=== PATIENT | female | born 1970 | race Caucasian/White ===

== ENCOUNTER → 2018-09-16 | Outpatient (CLI) | payer BC ==
[2018-09-16 09:36] LABS: Basophils # (A) 0.1 k/uL (0-0.2); Basophils % (A) 1 %; Eosinophils # (A) 0.2 k/uL (0-0.7); Eosinophils % (A) 3 %; HCT 44.1 % (34.0-46.0); Lymphocytes # (A) 1.8 k/uL (1.0-4.8); Lymphocytes % (A) 23 %; MCH 29.4 pg (25.0-35.0); MCHC 31.8 g/dL (31.0-37.0); MCV 92.7 fL (80.0-100.0); Mean Platelet Volume 7.5; Monocytes # (A) 0.3 k/uL (0-1.0); Monocytes % (A) 3 %; Neutrophils # (A) 5.3 k/uL (1.3-7.7); Neutrophils % (A) 69 %; Platelet Count 316 k/uL (150-450); RBC 4.76 m/uL (3.80-5.40); RDW 13.1 % (11.5-15.5); WBC 7.7 k/uL (3.8-10.6)
[2018-09-16 17:11] LABS: Albumin 4.2 g/dL (3.80-4.90); Albumin/Globulin Ratio 1.68 (1.60-3.17); Anion Gap 9.5 mmol/L (4.00-12.00); Calcium 9.2 mg/dL (8.7-10.3); Carbon Dioxide 23.5 mmol/L (21.6-31.8); Globulin 2.5 g/dL (1.6-3.3); LDL Cholesterol,Calculated 112.6 mg/dL (0.0-131.0); Potassium 4.8 mmol/L (3.5-5.5); Total Bilirubin 0.4 mg/dL (0.2-1.2); Total Protein 6.7 g/dL (6.2-8.2); VLDL Calculation 48.4 mg/dL (5.00-40.00)
[2018-09-16 17:20] LABS: Vitamin D 25 Hydroxy 48.7 ng/mL (30.0-100.0)
[2018-09-16 21:22] LABS: Hemoglobin A1C 5.3 % (4.0-6.0)
== END | disposition home or self-care (01) ==
LOC: LABWHC1 08:31
PROVIDERS: ATTEND Family Medicine
DX: J45.20 Mild intermittent asthma, uncomplicated (principal); E55.9 Vitamin D deficiency, unspecified; E53.8 Deficiency of other specified B group vitamins; Z13.228 Encounter for screening for other metabolic disorders; Z13.220 Encounter for screening for lipoid disorders
CPT/HCPCS: 36415; 80053; 80061; 82306; 82607; 83036; 84443; 85025

== ENCOUNTER → 2019-05-15 | Outpatient (CLI) | payer BC ==
[2019-05-15 09:09] LABS: Basophils # (A) 0.1 k/uL (0-0.2); Basophils % (A) 1 %; Eosinophils # (A) 0.2 k/uL (0-0.7); Eosinophils % (A) 3 %; HCT 41.3 % (34.0-46.0); HGB 14.1 gm/dL (11.4-16.0); Lymphocytes # (A) 2.5 k/uL (1.0-4.8); Lymphocytes % (A) 37 %; MCH 31.5 pg (25.0-35.0); MCV 92.7 fL (80.0-100.0); Mean Platelet Volume 6.7; Monocytes # (A) 0.3 k/uL (0-1.0); Monocytes % (A) 4 %; Neutrophils # (A) 3.8 k/uL (1.3-7.7); Neutrophils % (A) 54 %; Platelet Count 365 k/uL (150-450); RBC 4.46 m/uL (3.80-5.40); RDW 12.7 % (11.5-15.5); WBC 6.9 k/uL (3.8-10.6)
[2019-05-15 18:15] LABS: Albumin 4.2 g/dL (3.80-4.90); Albumin/Globulin Ratio 1.83 (1.60-3.17); BUN/Creat Ratio 16.25 Ratio (12.00-20.00); Calcium 9.4 mg/dL (8.7-10.3); Chol/HDL Ratio 3.88; Globulin 2.3 g/dL (1.6-3.3); Potassium 4.5 mmol/L (3.5-5.5); Total Bilirubin 0.5 mg/dL (0.2-1.2); Total Protein 6.5 g/dL (6.2-8.2)
[2019-05-19 11:09] LABS: Alpha 1 Anti-Trypsin 110 mg/dL (90 - 200)
== END | disposition home or self-care (01) ==
LOC: LABWHC1 07:47
PROVIDERS: ATTEND Family Medicine
DX: J45.40 Moderate persistent asthma, uncomplicated (principal); E78.1 Pure hyperglyceridemia
CPT/HCPCS: 36415; 80053; 80061; 82103; 82104; 82785; 84443; 85025; 86001; 86003; 86606; 86609

== ENCOUNTER → 2019-08-17 | Outpatient (CLI) | payer BC ==
--- NOTE | 2019-08-18 09:14 | MM ---
Reason for exam: screening (asymptomatic). Last mammogram was performed 5 years ago. History: Benign excisional biopsy of the right breast, 2004. Took estrogen for 19 years. Physical Findings: A clinical breast exam by your physician is recommended on an annual basis and results should be correlated with mammographic findings. MG 3D Screening Mammo W/Cad Bilateral CC and MLO view(s) were taken. Prior study comparison: August 03, 2014, bilateral MG screening mammo w CAD. March 19, 2012, bilateral digital screening mammo w/CAD. The breast tissue is heterogeneously dense. This may lower the sensitivity of mammography. No suspicious abnormality. No significant changes when compared with prior studies. ASSESSMENT: Negative, BI-RAD 1 RECOMMENDATION: Routine screening mammogram of both breasts in 1 year.
== END | disposition home or self-care (01) ==
LOC: RADMAMWWP 11:07
PROVIDERS: ATTEND Obstetrics & Gynecology
DX: Z12.31 Encounter for screening mammogram for malignant neoplasm of breast (principal)
CPT/HCPCS: 77063; 77067

== ENCOUNTER 2020-06-27 20:07 | Inpatient (IN) | payer BC ==
[2020-06-27] MEDS ORDERED: ACETAMINOPHEN TAB 500 MG TAB PO STA (21:06)
--- NOTE | 2020-06-27 21:09 | ED ---
SOB HPI - General Chief Complaint: Shortness of Breath Stated Complaint: + COVID Time Seen by Provider: 06/27/20 20:42 Source: patient Mode of arrival: ambulatory Limitations: no limitations - History of Present Illness Initial Comments: 49-year-old female with history of asthma presenting to the emergency department with a chief complaint of shortness of breath. Patient states 10 days ago she was diagnosed with covid-19 and she has been doing well. However, since yesterday she developed increased shortness of breath and chest pressure. She does report dyspnea on exertion. She denies any wheezing. States she contacted her primary care physician who started her on aspirin and prednisone with small improvement in symptoms. She does report complete loss of taste and smell. She reports alternate between Tylenol and Motrin for antipyretic control. She does report generalized body aches. Denies any nausea vomiting diarrhea. She denies history of PE or DVT, exogenous hormone use, unilateral leg swelling, hemoptysis, recent hospitalizations. - Related Data Allergies Allergy/AdvReac Type Severity Reaction Status Date / Time amoxicillin Allergy Unknown Verified 06/27/20 20:15 Childhood Sulfa (Sulfonamide Allergy Unknown Verified 06/27/20 20:15 Antibiotics) Childhood Review of Systems ROS Statement: Those systems with pertinent positive or pertinent negative responses have been documented in the HPI. ROS Other: All systems not noted in ROS Statement are negative. Past Medical History History of Any Multi-Drug Resistant Organisms: None Reported Smoking Status: Never smoker Past Alcohol Use History: None Reported Past Drug Use History: None Reported General Exam Limitations: no limitations General appearance: alert, in no apparent distress Head exam: Present: atraumatic, normocephalic, normal inspection Eye exam: Present: normal appearance, PERRL, EOMI Pupils: Present: normal accommodation ENT exam: Present: normal exam, normal oropharynx, mucous membranes moist, TM's normal bilaterally, normal external ear exam Neck exam: Present: normal inspection, full ROM. Absent: tenderness Respiratory exam: Present: rales (Crackles left lung base). Absent: normal lung sounds bilaterally, respiratory distress, wheezes, rhonchi, stridor, chest wall tenderness, accessory muscle use Cardiovascular Exam: Present: regular rate, normal rhythm, normal heart sounds. Absent: systolic murmur, diastolic murmur GI/Abdominal exam: Present: soft. Absent: distended, tenderness, guarding Extremities exam: Present: normal inspection, full ROM, normal capillary refill. Absent: tenderness, pedal edema, joint swelling, calf tenderness Back exam: Present: normal inspection, full ROM. Absent: tenderness, CVA tenderness (R), CVA tenderness (L) Neurological exam: Present: alert, oriented X3, normal gait Psychiatric exam: Present: normal affect, normal mood. Absent: agitated Skin exam: Present: warm, dry, intact, normal color Course Vital Signs 06/27/20 06/27/20 20:12 21:34 Temperature 100.2 F H Pulse Rate 123 H Respiratory 18 18 Rate Blood Pressure 144/81 O2 Sat by Pulse 96 Oximetry Medical Decision Making - Medical Decision Making 49-year-old female with history of asthma presenting to the emergency department with a chief complaint of shortness of breath. On physical examination, patient continues to be short of breath and she is having a nonproductive cough. Auscultation, she has crackles on the left lung base. Portable chest x-ray is unremarkable. CBC reveals leukocytosis of 16.2. Left shift. Coags within normal limits. Initial the emergency. Elevated CRP at 156. Patient is sitting at 95 on room air and it goes slightly below when ambulate him. She continues to feel short of breath. Her EKG showing sinus rhythm. She was tachycardic initially and she has been complaining of that over the past few days. Patient will be admitted for further medical management. Case discussed with ADmitting is Dr Brooks - Lab Data Result diagrams: 06/27/20 21:25 06/27/20 21:25 Lab Results 06/27/20 06/27/20 06/27/20 Range/Units 21:25 21:25 21:25 WBC 16.2 H (3.8-10.6) k/uL RBC 4.28 (3.80-5.40) m/uL Hgb 12.9 (11.4-16.0) gm/dL Hct 39.4 (34.0-46.0) % MCV 92.0 (80.0-100.0) fL MCH 30.2 (25.0-35.0) pg MCHC 32.8 (31.0-37.0) g/dL RDW 12.8 (11.5-15.5) % Plt Count 393 (150-450) k/uL MPV 7.5 Neutrophils % 91 % Lymphocytes % 5 % Monocytes % 2 % Eosinophils % 1 % Basophils % 1 % Neutrophils # 14.7 H (1.3-7.7) k/uL Lymphocytes # 0.9 L (1.0-4.8) k/uL Monocytes # 0.3 (0-1.0) k/uL Eosinophils # 0.1 (0-0.7) k/uL Basophils # 0.1 (0-0.2) k/uL PT 9.4 (9.0-12.0) sec INR 0.9 (<1.2) APTT 20.8 L (22.0-30.0) sec D-Dimer 0.49 (<0.60) mg/L FEU Sodium 136 L (137-145) mmol/L Potassium 3.8 (3.5-5.1) mmol/L Chloride 105 (98-107) mmol/L Carbon Dioxide 25 (22-30) mmol/L Anion Gap 6 mmol/L BUN 12 (7-17) mg/dL Creatinine 0.76 (0.52-1.04) mg/dL Est GFR (CKD-EPI)AfAm >90 (>60 ml/min/1.73 sqM) Est GFR (CKD-EPI)NonAf >90 (>60 ml/min/1.73 sqM) Glucose 112 H (74-99) mg/dL Plasma Lactic Acid Dylan (0.7-2.0) mmol/L Calcium 9.6 (8.4-10.2) mg/dL Magnesium 2.3 (1.6-2.3) mg/dL Total Bilirubin 0.4 (0.2-1.3) mg/dL AST 25 (14-36) U/L ALT 32 (4-34) U/L Alkaline Phosphatase 57 (38-126) U/L Lactate Dehydrogenase 442 (313-618) U/L C-Reactive Protein 156.8 H (<10.0) mg/L Total Protein 6.9 (6.3-8.2) g/dL Albumin 3.6 (3.5-5.0) g/dL /16/20 Range/Units 21:25 WBC (3.8-10.6) k/uL RBC (3.80-5.40) m/uL Hgb (11.4-16.0) gm/dL Hct (34.0-46.0) % MCV (80.0-100.0) fL MCH (25.0-35.0) pg MCHC (31.0-37.0) g/dL RDW (11.5-15.5) % Plt Count (150-450) k/uL MPV Neutrophils % % Lymphocytes % % Monocytes % % Eosinophils % % Basophils % % Neutrophils # (1.3-7.7) k/uL Lymphocytes # (1.0-4.8) k/uL Monocytes # (0-1.0) k/uL Eosinophils # (0-0.7) k/uL Basophils # (0-0.2) k/uL PT (9.0-12.0) sec INR (<1.2) APTT (22.0-30.0) sec D-Dimer (<0.60) mg/L FEU Sodium (137-145) mmol/L Potassium (3.5-5.1) mmol/L Chloride (98-107) mmol/L Carbon Dioxide (22-30) mmol/L Anion Gap mmol/L BUN (7-17) mg/dL Creatinine (0.52-1.04) mg/dL Est GFR (CKD-EPI)AfAm (>60 ml/min/1.73 sqM) Est GFR (CKD-EPI)NonAf (>60 ml/min/1.73 sqM) Glucose (74-99) mg/dL Plasma Lactic Acid Dylan 1.5 (0.7-2.0) mmol/L Calcium (8.4-10.2) mg/dL Magnesium (1.6-2.3) mg/dL Total Bilirubin (0.2-1.3) mg/dL AST (14-36) U/L ALT (4-34) U/L Alkaline Phosphatase (38-126) U/L Lactate Dehydrogenase (313-618) U/L C-Reactive Protein (<10.0) mg/L Total Protein (6.3-8.2) g/dL Albumin (3.5-5.0) g/dL - EKG Data EKG Comments: Sinus rhythm with no ST or T-wave changes. Ventricular rate 91, AL 138, QRS 72, QTC 432. Disposition Clinical Impression: COVID-19, Shortness of breath Disposition: ADMITTED IP TO THIS HOSP Condition: Good Is patient prescribed a controlled substance at d/c from ED?: No Referrals: Belen Brooks MD [Primary Care Provider] - 1-2 days Time of Disposition: 23:29
--- NOTE | 2020-06-27 21:16 | XR ---
EXAMINATION TYPE: XR chest 1V portable DATE OF EXAM: 06/27/2020 COMPARISON: 05/18/2015. HISTORY: Shortness of breath and body aches. TECHNIQUE: Single frontal view of the chest is obtained. FINDINGS: There is no focal air space opacity, pleural effusion, or pneumothorax seen. The cardiac silhouette size is within normal limits. The osseous structures are intact. IMPRESSION: No acute process.
[2020-06-27 21:56] LABS: Basophils # (A) 0.1 k/uL (0-0.2); Basophils % (A) 1 %; Eosinophils # (A) 0.1 k/uL (0-0.7); Eosinophils % (A) 1 %; HCT 39.4 % (34.0-46.0); HGB 12.9 gm/dL (11.4-16.0); Lymphocytes # (A) 0.9 k/uL (1.0-4.8); Lymphocytes % (A) 5 %; MCH 30.2 pg (25.0-35.0); MCHC 32.8 g/dL (31.0-37.0); Mean Platelet Volume 7.5; Monocytes # (A) 0.3 k/uL (0-1.0); Monocytes % (A) 2 %; Neutrophils # (A) 14.7 k/uL (1.3-7.7); Neutrophils % (A) 91 %; Platelet Count 393 k/uL (150-450); RBC 4.28 m/uL (3.80-5.40); RDW 12.8 % (11.5-15.5); WBC 16.2 k/uL (3.8-10.6)
[2020-06-27 22:18] LABS: D-Dimer 0.49 mg/L FEU (<0.60); INR 0.9 (<1.2); Prothrombin Time 9.4 sec (9.0-12.0)
[2020-06-27 22:27] LABS: ALT 32 U/L (4-34); AST 25 U/L (14-36); African American GFR (CKD) >90 (>60 ml/min/1.73 sqM); Albumin 3.6 g/dL (3.5-5.0); Alkaline Phosphatase 57 U/L (38-126); Anion Gap 6 mmol/L; Blood Urea Nitrogen 12 mg/dL (7-17); Calcium 9.6 mg/dL (8.4-10.2); Carbon Dioxide 25 mmol/L (22-30); Chloride 105 mmol/L (98-107); Glucose 112 mg/dL (74-99); LDH 442 U/L (313-618); Magnesium 2.3 mg/dL (1.6-2.3); Non-African American GFR(CKD) >90 (>60 ml/min/1.73 sqM); Partial Thromboplastin Time 20.8 sec (22.0-30.0); Potassium 3.8 mmol/L (3.5-5.1); Sodium 136 mmol/L (137-145); Total Bilirubin 0.4 mg/dL (0.2-1.3); Total Protein 6.9 g/dL (6.3-8.2)
[2020-06-27 22:38] LABS: C Reactive Protein 156.8 mg/L (<10.0)
[2020-06-27] MEDS ORDERED: ACETAMINOPHEN TAB 325 MG TAB PO PRN (23:03)
[2020-06-27] MEDS ORDERED: NALOXONE 0.4 MG/ML 1 ML VIAL IV PRN (23:03)
[2020-06-27] MEDS ORDERED: ONDANSETRON 4 MG/2 ML VIAL IVP PRN (23:03)
[2020-06-27] MEDS ORDERED: MORPHINE SULFATE 4 MG/ML SYRINGE IV PRN (23:03)
[2020-06-27] MEDS ORDERED: LORazepam 2 MG/ML INJ IV PRN (23:03)
[2020-06-28] MEDS: SODIUM CHLORIDE 0.9% 1,000 ML IV SCH ×2 (03:00→14:18)
[2020-06-28 03:45] LABS: Ferritin 445.8 ng/mL (10.0-291.0)
[2020-06-28] MEDS ORDERED: diazePAM 5 MG TAB PO PRN (09:09)
[2020-06-28] MEDS ORDERED: AZITHROMYCIN 500 MG TAB PO SCH (09:15)
[2020-06-28] MEDS: ENOXAPARIN 40 MG/0.4 ML SYRINGE SQ SCH (09:58)
[2020-06-28] MEDS: CHOLECALCIFEROL 1,000 UNIT TAB PO SCH (09:58)
[2020-06-28] MEDS: ASCORBIC ACID 500 MG TAB PO SCH (09:58)
[2020-06-28] MEDS: ZINC SULFATE 220 MG CAP PO SCH (09:59)
[2020-06-28] MEDS: guaiFENesin-Coden 100-10MG/5ML 10 ML CUP PO PRN (10:00)
--- NOTE | 2020-06-28 10:26 | P.HPIM ---
History of Present Illness H&P Date: 06/28/20 HISTORY OF PRESENT ILLNESS This is a 49-year-old female patient of Dr. Brooks and Dr. Calderon with past medical history of moderate intermittent asthma, lifelong nonsmoker. Patient states that she was diagnosed with COVID-19 10 days ago and her PCP gave her prescription for antibiotics and Decadron. She was feeling better with the steroids but over the last couple days she developed increasing fevers, headache and shortness of breath, exertional dyspnea. She came into [facility] emergency center for evaluation and found to have a t emperature 100.2, initial heart rate 123, blood pressure 144/81, pulse ox 96% on room air. WBCs were 16.2, d-dimer 0.49, sodium 136, potassium 3.8, creatinine 0.76. Ferritin 445.8. Liver function tests were normal. LDH 442, direct protein 156.8. EKG with sinus rhythm with no acute ST changes. Chest x-ray reveals no acute process. Patient is requesting to go home but her symptoms are not improved since she came in. She is requesting to not be on steroids because she has not been able to sleep. REVIEW OF SYSTEMS Constitutional: Reports fever, Reports chills, Reports night sweats. No weight change. No weakness, fatigue or lethargy. No daytime sleepiness. EENT: No headache. No blurred vision or double vision, no loss of vision. No loss of Hearing, no ringing in the ears, no dizziness. No nasal drainage or congestion. No epistaxis. No sore throat. Lungs: Reports shortness of breath, reports dyspnea with exertion, Reports cough, no sputum production. No wheezing. No hemoptysis. Cardiovascular: No chest pain, no lower extremity edema. No palpitations. No paroxysmal nocturnal dyspnea. No orthopnea. No lightheadedness or dizziness. No syncopal episodes. Abdominal: No abdominal pain. No nausea, vomiting. No diarrhea. No constipation. No bloody or tarry stools.. No loss of appetite. Genitourinary: No dysuria, increased frequency, urgency. No urinary retention. Musculoskeletal: No myalgias. No muscle weakness, no gait dysfunction, no frequent falls. No back pain. No neck pain. Integumentary: No wounds, no lesions. No rash or pruritus. No unusual bruising. No change in hair or nails. Neurologic: No aphasia. No facial droop. No change in mentation. No head injury. No headache. No paralysis. No paresthesia. Psychiatric: No depression. No anxiety. No mood swings. Endocrine: No abnormal blood sugars. No weight change. No excessive sweating or thirst. No cold intolerance. SOCIAL HISTORY Patient is a lifelong nonsmoker, no illicit drug use or marijuana use. She drinks alcohol occasionally. She lives at home with her 2 sons. One son has tested positive for Covid and second son has not received results yet. 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 She does not have patient contact. FAMILY HISTORY Mother is alive at age 70 with history of coronary artery disease. Father is alive in his 70s with history of coronary artery disease status post 5 vessel CABG. Patient has one brother who is from suicide. No sisters. She has 2 sons and one has pots syndrome. PHYSICAL EXAMINATION Gen: This is a 49-year-old female. She is resting in the ER stretcher. She is coughing frequently. She is able to speak in full sentences. HEENT: Head is atraumatic, normocephalic. Pupils equal, round. Sclerae is anicteric. NECK: Supple. No JVD. No lymphadenopathy. No thyromegaly. LUNGS: Crackles in the left base. No intercostal retractions. HEART: Regular rate and rhythm. No murmur. ABDOMEN: Soft. Bowel sounds are present. No masses. No tenderness. EXTREMITIES: No pedal edema. No calf tenderness. NEUROLOGICAL: Patient is awake, alert and oriented x3. Cranial nerves 2 through 12 are grossly intact. ASSESSMENT AND PLAN 1. Sepsis secondary to Covid infection. Patient started on a Zithromax and, dexamethasone 6 mg daily, Lovenox 40 mg subcu daily, zinc, vitamin C, vitamin D, Robitussin with codeine. Consult with pulmonary medicine. 2. Moderate intermittent asthma. Continue Symbicort 2 puffs twice daily, Singulair 10 mg daily. 3. Situational anxiety. Valium 5 mg twice daily as needed. 4. GI prophylaxis. Protonix. 5. DVT prophylaxis. Lovenox. Patient will be admitted to the hospital for a minimum of 2 night stay. DISCHARGE PLAN home in 24-48 hours. Impression and plan of care have been directed as dictated by the signing physician. Indira Major nurse practitioner acting as scribe for signing physician. Past Medical History History of Any Multi-Drug Resistant Organisms: None Reported Smoking Status: Never smoker Past Alcohol Use History: None Reported Past Drug Use History: None Reported Medications and Allergies Home Medications Medication Instructions Recorded Confirmed Type Acetaminophen Tab [Tylenol] 1,000 mg PO ONCE PRN 06/27/20 06/27/20 History Budesonide-Formot 160-4.5 Mcg 2 puff INHALATION RT-BID 06/27/20 06/27/20 History [Symbicort 160-4.5 Mcg Inhaler] Dexamethasone [Decadron] See Taper PO DIRECTED 06/27/20 06/27/20 History Ibuprofen [Advil] 400 mg PO ONCE PRN 06/27/20 06/27/20 History LORazepam [Ativan] 0.5 mg PO HS PRN 06/27/20 06/27/20 History Montelukast Sodium [Singulair] 10 mg PO DAILY 06/27/20 06/27/20 History Allergies Allergy/AdvReac Type Severity Reaction Status Date / Time amoxicillin Allergy Unknown Verified 06/27/20 23:53 Childhood Sulfa (Sulfonamide Allergy Unknown Verified 06/27/20 23:53 Antibiotics) Childhood Physical Exam Vitals: Vital Signs Temp Pulse Resp BP Pulse Ox 06/28/20 06:00 80 16 95 06/28/20 05:00 84 18 96 06/28/20 04:49 98.1 F 85 18 125/84 97 06/28/20 03:00 79 16 94 L 06/28/20 02:00 79 16 94 L 06/28/20 01:18 97.8 F 93 18 122/89 97 06/28/20 01:00 83 18 96 06/28/20 00:00 98.0 F 81 18 06/27/20 23:00 84 18 95 06/27/20 22:00 82 18 95 06/27/20 21:34 18 06/27/20 20:12 100.2 F H 123 H 18 144/81 96 Intake and Output 06/27/20 06/28/20 06/28/20 22:59 06:59 14:59 Other: Weight 63.503 kg Results CBC & Chem 7: 06/27/20 21:25 06/27/20 21:25 Labs: Abnormal Lab Results - Last 24 Hours (Table) 06/27/20 06/27/20 06/27/20 Range/Units 21:25 21:25 21:25 WBC 16.2 H (3.8-10.6) k/uL Neutrophils # 14.7 H (1.3-7.7) k/uL Lymphocytes # 0.9 L (1.0-4.8) k/uL APTT 20.8 L (22.0-30.0) sec Sodium 136 L (137-145) mmol/L Glucose 112 H (74-99) mg/dL Ferritin 445.8 H (10.0-291.0) ng/mL C-Reactive Protein 156.8 H (<10.0) mg/L
[2020-06-28] MEDS: HYDROcodone/APAP 5-325MG 1 EACH TAB PO PRN ×2 (12:13→17:41)
[2020-06-28] MEDS: SYMBICORT 160-4.5 MCG INHALER INHALATION SCH (18:07)
--- NOTE | 2020-06-28 19:36 | P.CNPUL ---
History of Present Illness Consult date: 06/28/20 Reason for consult: dyspnea History of present illness: 49-year-old female patient, hospitalized for an acute coronavirus COVID 19 related infection complications. The patient was diagnosed having COVID approximately 10 days ago. The patient's was taken Decadron outpatient basis and she was feeling better. Over the last couple of days, the patient developed some increased headaches and shortness of breath and fever the patient came into the emergency department today and the patient was found to have a temperature 100.2 with a heart rate of 129 and her pulse ox on room air was around 96%. At that point she had a white cell count of 16.2 and the rest of the blood work and electrodes were within normal limits. Liver function tests were within normal limits. LDH was 442. C-reactive protein was 156.8. The patient had a chest x-ray that showed no clear acute cardio 40 process and the patient's pulse ox is in the order of 93-97% on room air oxygen. The patient is denying chest pain. No reported wheezing. She has generalized body aches. No nausea. No vomiting. No diarrhea. No DVT. No pulmonary embolism. She was taking Tylenol or Motrin on outpatient basis. Review of Systems Constitutional: Reports fatigue, Reports fever, Reports lethargy, Reports weakness Eyes: denies as per HPI, denies blurred vision, denies bulging eye, denies decreased vision, denies diplopia, denies discharge, denies dry eye, denies irritation, denies itching, denies pain, denies photophobia, denies loss of peripheral vision, denies loss of vision, denies tunnel vision/blind spots Ears: deny: decreased hearing, ear discharge, earache, tinnitus Ears, nose, mouth and throat: Reports as per HPI Breasts: absent: as per HPI, change in shape, gynecomastia, masses, nipple discharge, pain, skin changes, swelling Cardiovascular: Reports decreased exercise tolerance, Reports dyspnea on exertion Respiratory: Reports cough, Reports dyspnea Gastrointestinal: Reports as per HPI Genitourinary: Reports as per HPI Menstruation: Reports as per HPI Musculoskeletal: Reports as per HPI, Reports muscle weakness Musculoskeletal: absent: ankle pain, ankle stiffness, ankle swelling Integumentary: Reports as per HPI Neurological: Reports weakness Psychiatric: Reports as per HPI, Reports change in sleep habits (Later to use of steroids.) Endocrine: Reports as per HPI Hematologic/Lymphatic: Reports as per HPI Past Medical History Past Medical History: Asthma History of Any Multi-Drug Resistant Organisms: None Reported Past Surgical History: Hysterectomy Additional Past Surgical History / Comment(s): sinus surgery Past Anesthesia/Blood Transfusion Reactions: No Reported Reaction Smoking Status: Never smoker Past Alcohol Use History: None Reported Past Drug Use History: None Reported - Past Family History Mother Family Medical History: Congestive Heart Failure (CHF), Coronary Artery Disease (CAD), Diabetes Mellitus Father Family Medical History: Congestive Heart Failure (CHF), Coronary Artery Disease (CAD) Medications and Allergies Home Medications Medication Instructions Recorded Confirmed Type Acetaminophen Tab [Tylenol] 1,000 mg PO ONCE PRN 06/27/20 06/27/20 History Budesonide-Formot 160-4.5 Mcg 2 puff INHALATION RT-BID 06/27/20 06/27/20 History [Symbicort 160-4.5 Mcg Inhaler] Dexamethasone [Decadron] See Taper PO DIRECTED 06/27/20 06/27/20 History Ibuprofen [Advil] 400 mg PO ONCE PRN 06/27/20 06/27/20 History LORazepam [Ativan] 0.5 mg PO HS PRN 06/27/20 06/27/20 History Montelukast Sodium [Singulair] 10 mg PO DAILY 06/27/20 06/27/20 History Allergies Allergy/AdvReac Type Severity Reaction Status Date / Time amoxicillin Allergy Unknown Verified 06/27/20 23:53 Childhood Sulfa (Sulfonamide Allergy Unknown Verified 06/27/20 23:53 Antibiotics) Childhood Physical Exam Vitals: Vital Signs Temp Pulse Pulse Resp BP BP Pulse Ox 06/28/20 16:00 20 06/28/20 15:28 98.2 F 109 H 22 124/77 93 L 06/28/20 14:03 96 16 125/82 97 06/28/20 11:56 99.1 F 127 H 16 134/92 94 L 06/28/20 06:00 80 16 95 06/28/20 05:00 84 18 96 06/28/20 04:49 98.1 F 85 18 125/84 97 06/28/20 03:00 79 16 94 L 06/28/20 02:00 79 16 94 L 06/28/20 01:18 97.8 F 93 18 122/89 97 06/28/20 01:00 83 18 96 06/28/20 00:00 98.0 F 81 18 06/27/20 23:00 84 18 95 06/27/20 22:00 82 18 95 06/27/20 21:34 18 06/27/20 20:12 100.2 F H 123 H 18 144/81 96 Intake and Output 06/28/20 06/28/20 06/28/20 06:59 14:59 22:59 Other: Weight 63.503 kg The patient appeared well nourished and normally developed. Vital signs as documented. The patient is having frequent cough especially with deep breathing and speaking. Head exam is unremarkable. No scleral icterus or corneal arcus noted. Neck is without jugular venous distension, thyromegaly, or carotid bruits. Carotid upstrokes are brisk bilaterally. Lungs are clear to auscultation and percussion. Cardiac exam reveals the PMI to be normally sized and situated. Rhythm is regular. First and second heart sounds normal. No murmurs, rubs or gallops. Abdominal exam reveals normal bowel sounds, no masses, no organomegaly and no aortic enlargement. Extremities are nonedematous and both femoral and pedal pulses are normal. Examination of the skin revealed no evidence of significant rashes, suspicious appearing nevi or other concerning lesions.. Neurologically, the patient is awake and alert and the patient does not have any focal neurological deficit. Cranial nerves are essentially intact. Results - Laboratory Findings CBC and BMP: 06/27/20 21:25 06/27/20 21:25 PT/INR, D-dimer PT 9.4 sec (9.0-12.0) 06/27/20 21:25 INR 0.9 (<1.2) 06/27/20 21:25 D-Dimer 0.49 mg/L FEU (<0.60) 06/27/20 21:25 Abnormal lab findings: Abnormal Labs 06/27/20 06/27/20 06/27/20 21:25 21:25 21:25 WBC 16.2 H Neutrophils # 14.7 H Lymphocytes # 0.9 L APTT 20.8 L Sodium 136 L Glucose 112 H Ferritin 445.8 H C-Reactive Protein 156.8 H - Diagnostic Findings Chest x-ray: image reviewed Assessment and Plan Plan: 1 acute Covid 19 related pulmonary infection with signs of an early pneumonia. The patient is limited hypoxemia. She was able to maintain the pulse ox above 90% on room air oxygen. Nevertheless the patient is having some limited s hortness of breath and cough and 2 Generalized weakness and fever and bodyaches secondary to Covid 19 infection 3 history of moderate persistent bronchial asthma, maintained on Symbicort on outpatient basis 4 changes in sleep pattern related to overuse of steroids on outpatient basis 5 abnormal inflammatory markers secondary to Covid 19 infection 6 leukocytosis, with a low procalcitonin level and bacterial infection is felt to be much less likely complicating the picture. Plan Supportive care regarding Covid 19 infection. The patient will be continued on her oral Decadron a dose of 6 mg by mouth daily. Lovenox for DVT prophylaxis, d-dimer levels are low Resume Symbicort and Singulair regarding her bronchial asthma IV fluid hydration at the rate of 75 mL daily, normal saline Supportive care with zinc, vitamin C and vitamin D in addition to Robitussin-DM for cough We'll continue to follow. Do not see the need for antibiotic treatment at this point in time.
[2020-06-28 20:15] VITALS: RESP 16
--- NOTE | 2020-06-29 01:21 | CONS ---
CONSULTATION DATE OF SERVICE: 06/28/2020. REASON FOR CONSULTATION: 1. COVID. 2. Leukocytosis. HISTORY OF PRESENT ILLNESS: The patient is a 49-year-old female with a past medical history significant for moderate intermittent asthma. No history of smoking. The patient has been diagnosed with COVID more than 10 days ago and did have symptoms for a few days prior to that. The patient has been treated with Zithromax and Decadron and the patient started feeling better. However, the last few days the patient been complaining of palpitation, shortness of breath. The patient denies having any chest pain. She did have a mild cough. No sputum production. No nausea, no vomiting. No abdominal pain or any diarrhea. With these symptoms, the patient was evaluated by the ER physician. On arrival to the ER, the patient did have a low-grade fever of 100.2. The patient has tachycardia with a heart rate of 109. The patient has been saturating between 96% to 97% on room air. The patient did have white count 16.2, did have mild lymphopenia. D- dimer was normal. Creatinine normal. ALT, AST normal. Procalcitonin normal. CRP was 156.8. The patient did have a chest x-ray with no acute process. The patient has been admitted to the hospital. The patient was started on Symbicort, dexamethasone, Lovenox, and zinc sulfate. Infectious Disease was consulted for further management. REVIEW OF SYSTEMS: Positive points have been mentioned in HPI. Rest of the systems are negative. PAST MEDICAL HISTORY: Moderate intermittent asthma. PAST SURGICAL HISTORY: No major surgery. SOCIAL HISTORY: No smoking, drinking or drug use. FAMILY HISTORY: Mother with history of coronary artery disease. Father also history of coronary artery disease. ALLERGIES: Allergies to AMOXICILLIN and SULFA. MEDICATIONS: Medications include the patient is currently on zinc sulfate, Zofran, Narcan, Singulair, Ativan, Robitussin, Lovenox, Valium, dexamethasone, vitamin D3. PHYSICAL EXAMINATION: Blood pressure is 117/77 with the pulse of 81, temperature is 98.3. She is 97% on room air. General description is a middle-aged female up in the bed in no distress. No tachypnea or accessory muscle of respiration use. HEENT EXAMINATION: No pallor or scleral icterus. Mucous membranes moist. NECK: Trachea central. No thyromegaly. LUNGS: Unlabored breathing, decreased intensity of breath sounds. No wheeze. HEART: S1, S2. Regular rate and rhythm. No added sounds. ABDOMEN: Soft, no tenderness. No rigidity. EXTREMITIES: No edema of feet. SKIN EXAMINATION: No rash or mass palpable. NEUROLOGICAL: Patient is awake, alert, oriented x3. Mood and affect normal. LABS: Hemoglobin is 12.9, hematocrit 16.2. Liver enzymes normal. CRP is 156.8. Procalcitonin normal. Chest x-ray was negative. DIAGNOSTIC IMPRESSION: 1. Patient admitted to the hospital with increasing shortness of breath and palpitation in this patient has been diagnosed with COVID ten days ago and symptoms have been there for more than 10 days in this patient currently out of the for any therapeutic benefit from remdesivir. Underlying interval embolic episode will be of high clinical concern. However, the patient's D-dimer was normal. 2. Patient with elevated white count, more likely steroid effect, as the patient is on oral steroids in outpatient setting. PLAN: 1. We will keep the patient on Lovenox, dexamethasone and zinc sulfate. 2. No need for remdesivir or antibiotic therapy. 3. We will follow on her clinical and further adjust her medication if needed. Thank you for this consultation. Will follow this patient along with you. MMODL / IJN: [id number] /
[2020-06-29] MEDS: HYDROcodone/APAP 5-325MG 1 EACH TAB PO PRN (01:39)
[2020-06-29] MEDS: SODIUM CHLORIDE 0.9% 1,000 ML IV SCH (02:15)
[2020-06-29 04:08] VITALS: BP 123/71; PULSE 88; TEMP 98.1
[2020-06-29] MEDS: guaiFENesin-Coden 100-10MG/5ML 10 ML CUP PO PRN (06:20)
[2020-06-29] MEDS: SYMBICORT 160-4.5 MCG INHALER INHALATION SCH (07:27)
--- NOTE | 2020-06-29 08:17 | P.DS ---
Providers Date of admission: 06/27/20 23:12 Expected date of discharge: 06/29/20 Attending physician: Belen Brooks Consults: 06/28/20 00:33 Consult Physician Routine Consulting Provider: Laura Talavera Consult Reason/Comments: covid Do you want consulting provider notified?: Yes 06/28/20 10:17 Consult Physician Routine Consulting Provider: Juan Calderon Consult Reason/Comments: covid Do you want consulting provider notified?: Yes Primary care physician: Belen Brooks [facility] Course: HISTORY OF PRESENT ILLNESS This is a 49-year-old female patient of Dr. Brooks and Dr. Calderon with past medical history of moderate intermittent asthma, lifelong nonsmoker. Patient states that she was diagnosed with COVID-19 10 days ago and her PCP gave her prescription for antibiotics and Decadron. She was feeling better with the steroids but over the last couple days she developed increasing fevers, headache and shortness of breath, exertional dyspnea. She came into [facility] emergency center for evaluation and found to have a temperature 100.2, initial heart rate 123, blood pressure 144/81, pulse ox 96% on room air. WBCs were 16.2, d-dimer 0.49, sodium 136, potassium 3.8, creatinine 0.76. Ferritin 445.8. Liver function tests were normal. LDH 442, direct protein 156.8. EKG with sinus rhythm with no acute ST changes. Chest x- ray reveals no acute process. Patient is requesting to go home but her symptoms are not improved since she came in. She is requesting to not be on steroids because she has not been able to sleep. 06/29: The patient has been seen by pulmonary medicine and Dr. Talavera. No antibiotics are necessary and patient does not meet criteria for Remdesivir. She has been afebrile, heart rate 88, blood pressure 123/71, pulse ox 94% on room air. She continues to have nonproductive cough. Incentive spirometry and SEKOU hose will be provided to the patient prior to discharge. Patient will be discharged home today in stable condition. ASSESSMENT AND PLAN 1. Sepsis secondary to Covid infection. 2. Moderate intermittent asthma. 3. Situational anxiety. DISCHARGE PLAN home. Impression and plan of care have been directed as dictated by the signing physician. Indira Major nurse practitioner acting as scribe for signing physician. Patient Condition at Discharge: Good Plan - Discharge Summary Discharge Rx Participant: No New Discharge Prescriptions: New Aspirin 325 mg PO DAILY #14 tab Dexamethasone 6 mg PO DAILY #7 tablet HYDROcodone/APAP 5-325MG [Croton 5-325] 1 each PO Q4HR PRN tab PRN Reason: Moderate Pain Zinc Sulfate [Orazinc] 220 mg PO DAILY cap guaiFENesin-Coden 100-10MG/5ML [Robitussin AC] 10 ml PO Q6H PRN ml PRN Reason: Cough Ascorbic Acid [Vitamin C] 1,000 mg PO DAILY tab Cholecalciferol [Vitamin D3 (25 Mcg = 1000 Iu)] 2,000 unit PO DAILY tab Continue Budesonide-Formot 160-4.5 Mcg [Symbicort 160-4.5 Mcg Inhaler] 2 puff INHALATION RT-BID Acetaminophen Tab [Tylenol] 1,000 mg PO ONCE PRN PRN Reason: Pain Montelukast Sodium [Singulair] 10 mg PO DAILY LORazepam [Ativan] 0.5 mg PO HS PRN PRN Reason: Anxiety Ibuprofen [Advil] 400 mg PO ONCE PRN PRN Reason: Pain Discontinued Dexamethasone [Decadron] See Taper PO DIRECTED Discharge Medication List Acetaminophen Tab [Tylenol] 1,000 mg PO ONCE PRN 06/27/20 [History] Budesonide-Formot 160-4.5 Mcg [Symbicort 160-4.5 Mcg Inhaler] 2 puff INHALATION RT-BID 06/27/20 [History] Ibuprofen [Advil] 400 mg PO ONCE PRN 06/27/20 [History] LORazepam [Ativan] 0.5 mg PO HS PRN 06/27/20 [History] Montelukast Sodium [Singulair] 10 mg PO DAILY 06/27/20 [History] Ascorbic Acid [Vitamin C] 1,000 mg PO DAILY tab 06/29/20 [Rx] Aspirin 325 mg PO DAILY #14 tab 06/29/20 [Rx] Cholecalciferol [Vitamin D3 (25 Mcg = 1000 Iu)] 2,000 unit PO DAILY tab 06/29/20 [Rx] Dexamethasone 6 mg PO DAILY #7 tablet 06/29/20 [Rx] HYDROcodone/APAP 5-325MG [Croton 5-325] 1 each PO Q4HR PRN tab 06/29/20 [Rx] Zinc Sulfate [Orazinc] 220 mg PO DAILY cap 06/29/20 [Rx] guaiFENesin-Coden 100-10MG/5ML [Robitussin AC] 10 ml PO Q6H PRN ml 06/29/20 [Rx] Follow up Appointment(s)/Referral(s): Belen Brooks MD [Primary Care Provider] - 07/05/20 11:15 am (virtual visit Saturday) Patient Instructions/Handouts: Aspirin (By mouth), Dexamethasone (By mouth) Activity/Diet/Wound Care/Special Instructions: Continue incentive spirometry 10 times every hour while awake, continue SEKOU hose while awake for the next 14 days. Discharge Disposition: HOME SELF-CARE
[2020-06-29] MEDS: ASCORBIC ACID 500 MG TAB PO SCH (08:29)
[2020-06-29] MEDS: ENOXAPARIN 40 MG/0.4 ML SYRINGE SQ SCH (08:29)
[2020-06-29] MEDS: CHOLECALCIFEROL 1,000 UNIT TAB PO SCH (08:29)
[2020-06-29] MEDS: ZINC SULFATE 220 MG CAP PO SCH (08:29)
[2020-06-29] MEDS ORDERED: dexAMETHasone 2 MG TAB PO SCH (09:00)
[2020-06-29] MEDS ORDERED: MONTELUKAST 10 MG TAB PO SCH (09:00)
== END 2020-06-29 12:44 | disposition home or self-care (01) | DRG 871 ==
LOC: EC 20:07 → 4SSUR 23:12 → 6NMEDSUR 06-28 14:12
PROVIDERS: ADMIT Family Medicine; ATTEND Family Medicine
DX: A41.89 Other specified sepsis (principal); U07.1 COVID-19; D72.810 Lymphocytopenia; F41.9 Anxiety disorder, unspecified; J45.20 Mild intermittent asthma, uncomplicated; Z79.51 Long term (current) use of inhaled steroids; Z79.899 Other long term (current) drug therapy; Z82.49 Family history of ischemic heart disease and other diseases of the circulatory system; Z83.3 Family history of diabetes mellitus; Z90.710 Acquired absence of both cervix and uterus; Z81.8 Family history of other mental and behavioral disorders; D72.829 Elevated white blood cell count, unspecified; T38.0X5A Adverse effect of glucocorticoids and synthetic analogues, initial encounter; Z88.0 Allergy status to penicillin; Z88.2 Allergy status to sulfonamides
CPT/HCPCS: 36415; 71045; 80053; 82728; 83605; 83615; 83735; 84145; 85025; 85379; 85610; 85730; 86140; 87040; 93005; 94640; 99285

== ENCOUNTER → 2022-01-15 | Outpatient (CLI) | payer BC ==
--- NOTE | 2022-01-16 19:42 | MM ---
Reason for Exam: Screening (asymptomatic). Last mammogram was performed 2 year(s) and 5 month(s) ago. Patient History: Menarche at age 15. First Full-Term at age 30. Late child-bearing (after 30). Hysterectomy at age 39. Postmenopausal. Patient used Hormonal Contraceptives for 19 years. 2004, Benign Excisional Biopsy on the right side. Risk Values: Daisy 5 year model risk: 1.5%. NCI Lifetime model risk: 12.8%. Prior Study Comparison: 03/19/2012 Bilateral Screening Mammogram, [facility]. 08/03/2014 Bilateral Screening Mammogram, [facility]. 08/17/2019 Bilateral Screening Mammogram, [facility]. Tissue Density: The breast tissue is heterogeneously dense. This may lower the sensitivity of mammography. Findings: Analyzed By CAD. No significant change from prior exams. Overall Assessment: Negative, BI-RAD 1 Management: Screening Mammogram of both breasts in 1 year. A clinical breast exam by your physician is recommended on an annual basis and results should be correlated with mammographic findings. Also, the patient should continue monthly self breast exams. Electronically signed and approved by: Misti Pool M.D. Radiologist
== END | disposition home or self-care (01) ==
LOC: RADMAMWWP 13:34
PROVIDERS: ATTEND Family Medicine
DX: Z12.31 Encounter for screening mammogram for malignant neoplasm of breast (principal); Z78.0 Asymptomatic menopausal state
CPT/HCPCS: 77063; 77067

== ENCOUNTER → 2023-11-05 | Outpatient (CLI) | payer BC ==
--- NOTE | 2023-11-08 09:52 | MM ---
Reason for Exam: Screening (asymptomatic). Last mammogram was performed 1 year(s) and 9 month(s) ago. Patient History: Menarche at age 15. First Full-Term at age 30. Late child-bearing (after 30). Hysterectomy at age 39. Postmenopausal. Patient used Hormonal Contraceptives for 19 years. 2005, Benign Excisional Biopsy on the right side. Risk Values: Daisy 5 year model risk: 1.6%. NCI Lifetime model risk: 12.4%. Prior Study Comparison: 08/03/2014 Bilateral Screening Mammogram, [facility]. 08/17/2019 Bilateral Screening Mammogram, [facility]. 01/15/2022 Bilateral MG 3D screening mammo w/cad, [facility]. Tissue Density: The breasts are extremely dense, which lowers the sensitivity of mammography. Findings: Analyzed By CAD. There is no suspicious group of microcalcifications or new suspicious mass in either breast. Overall Assessment: Benign, BI-RAD 2 Management: Screening Mammogram of both breasts in 1 year. . Patient should continue monthly self-breast exams. A clinical breast exam by your physician is recommended on an annual basis. This exam should not preclude additional follow-up of suspicious palpable abnormalities. Note on Daisy scores and lifetime risk: 1. A Daisy score greater than 3% is considered moderate risk. If this is the case, consider specialist referral to assess eligibility for a risk reducing agent. 2. If overall lifetime risk for the development of breast cancer is 20% or higher, the patient may qualify for future screening with alternating mammogram and breast MRI. Electronically signed and approved by: Gelacio Cannon M.D. Radiologis
== END | disposition home or self-care (01) ==
LOC: RADMAMWWP 11:18
PROVIDERS: ATTEND Family Medicine
DX: Z12.31 Encounter for screening mammogram for malignant neoplasm of breast (principal); Z78.0 Asymptomatic menopausal state
CPT/HCPCS: 77063; 77067